=== PATIENT | male | born 2000 | race Caucasian/White ===

== ENCOUNTER 2021-10-21 13:45 | Emergency (ER) | payer OTHER, SELFPAY ==
--- NOTE | 2021-10-21 13:52 | ED.SKABFB ---
HPI - Skin/Abscess/Foreign Bdy General Chief complaint: Skin/Abscess/Foreign Body Stated complaint: Cyst Time Seen by Provider: 10/21/21 13:52 Source: patient Mode of arrival: ambulatory Limitations: no limitations History of Present Illness HPI narrative: Mr. Rosa is a 21-year-old male patient presenting to the today with complaints of possible pilonidal abscess/cyst. He reports he first noticed this 2 to 3 days ago and has been increasingly more painful. He thinks it may be a pilonidal cyst. No history of pilonidal cyst or any other abscesses in the past. Review of Systems Review of Systems: Pertinent positives per HPI. Patient denies any fever, chills, rash, headache, visual changes, dizziness, cough, runny nose, sore throat, shortness of breath, chest pain, palpitations, nausea, vomiting, diarrhea, constipation, abdominal pain, or any urinary issues. PMFSH Comments At the time of my signature, I reviewed and agree with the nursing past medical, surgical, social, and family history. There is no relevant family history pertinent to the patient complaint. Exam Narrative: General: Well-developed, well nourished, in no apparent distress Cardio: Regular rate and rhythm, s1 and s2 normal, no murmur appreciated. Resp: Clear to auscultation bilaterally, no rhonchi, rales, wheezing or rubs. Integumentary: [place], warm, and dry, tender perirectal abscess to the right gluteal cleft measuring approximately the size of a golf ball with redness, swelling, fluctuance, and bloody white purulent discharge expressed. Culture obtained. Incision and drainage performed. Course Course Emergency Course: Portions of this record may have been created with voice recognition software. Level of Care: Express Care Visit Vital Signs Vital signs: Vital signs reviewed Procedures Abscess I/D sylvia-rectal: Date of Incision: 10/21/21 Time of Incision: 14:30 Side (if applicable): right Local Anesthetic: lidocaine 1% Amount of anesthesia used (mL): 2 Technique: incised with #11 blade Amount of fluid expressed (mL): 0.5 Irrigation: Yes Packing used?: none I&D Results: Pus and Blood Abcess I&D Additional Comments: Verbal consent obtained for incision and drainage of perirectal abscess. Risk and benefits explained and patient voiced understanding. Area was cleansed with [employer]. Area was prepped and draped using sterile technique. 25 gauge needle was then used to instill (2) ml of lidocaine without epi into the abscess edges. Patient tolerated well and anesthesia was appropriate. An 11 blade scalpel was then used to make a 0.5cm incision over the abscess. White bloody exudate expressed from cavity. Wound culture obtained and sent to lab. Patient tolerated procedure well. No packing was used. Triple anabiotic ointment and 4 x 4's applied and secured with tape. MDM - Skin/Abscess/Foreign Bdy MDM Narrative Medical decision making narrative: At the time of assessment patient has a golf ball sized perirectal abscess to the right gluteal cleft. This was fluctuant and had some purulent discharge. Culture was obtained and discussed incision and drainage and patient was agreeable to have this completed. Incision and drainage was performed and patient placed on Cipro and Flagyl for treatment of infected perirectal abscess. Differential Diagnosis Differential diagnosis: Likely abscess of skin or subcutaneous tissue, cellulitis and other (Sepsis, pilonidal cyst, localized skin infection.) Discharge Plan Discharge Clinical Impression: Abscess, perirectal Patient Disposition: Home, Self-Care Condition: Stable Instructions: Antibiotic Form, Abscess Incision and Drainage (DC) Additional Instructions: Incision and drainage performed. Metronidazole and Ciprofloxacin as directed. You may shower - let the soapy water clean your wound, do not scrub it. Change dressing daily- more often as
[2021-10-21 13:56] VITALS: BP 132/64; PULSE 80; RESP 16; TEMP 37.4; O2SAT 100
== END 2021-10-21 14:30 | disposition home or self-care (01) ==
PROVIDERS: Emergency Provider Nurse Practitioner Family
DX: K61.1 Rectal abscess (principal)
CPT/HCPCS: 46050; 87070; 87075; 87076; 87185; 87205; 99213; G0463